=== PATIENT | female | born 1990 | race Caucasian/White ===

== ENCOUNTER 2017-10-31 15:24 | Outpatient (CLI) ==
[2014-01-25 14:05] VITALS: BMI 31.8
== END 2017-10-31 15:25 | disposition home or self-care (01) ==
LOC: RHC-LAB 15:24
PROVIDERS: ATTEND Nurse Practitioner Family
DX: J02.9 Acute pharyngitis, unspecified (principal); R52 Pain, unspecified
CPT/HCPCS: 87651; 87804

== ENCOUNTER 2018-01-10 09:28 | Outpatient (CLI) ==
[2014-01-25 14:05] VITALS: BMI 31.8
== END 2018-01-10 09:29 | disposition home or self-care (01) ==
LOC: RHC-LAB 09:28
PROVIDERS: ATTEND Nurse Practitioner Family
DX: R00.0 Tachycardia, unspecified (principal); J02.9 Acute pharyngitis, unspecified
CPT/HCPCS: 36415; 80053; 80061; 84443; 87651

== ENCOUNTER 2018-01-19 12:02 | Outpatient (CLI) ==
[2014-01-25 14:05] VITALS: BMI 31.8
== END 2018-01-19 12:03 | disposition home or self-care (01) ==
LOC: RHC-LAB 12:02
PROVIDERS: ATTEND Emergency Medicine
DX: F41.9 Anxiety disorder, unspecified (principal); R00.0 Tachycardia, unspecified
CPT/HCPCS: 36415; 85025